=== PATIENT | male | born 1955 | race Caucasian/White ===

== ENCOUNTER → 2024-07-02 09:11 | Outpatient (REF) | payer MEDICARE, OTHER, SELFPAY | LOC: HWRAD 09:11 | PROVIDERS: ATTENDING PHYSICIAN Nurse Practitioner Family | DX: Z72.0 Tobacco use (principal); R91.1 Solitary pulmonary nodule; F17.210 Nicotine dependence, cigarettes, uncomplicated | CPT/HCPCS: 71271; 76770 ==

== ENCOUNTER → 2024-10-30 08:32 | Outpatient (REF) | payer MEDICARE, OTHER, SELFPAY | LOC: RCS 08:32 | PROVIDERS: ATTENDING PHYSICIAN Nurse Practitioner Family | DX: R03.0 Elevated blood-pressure reading, without diagnosis of hypertension (principal); R06.09 Other forms of dyspnea | CPT/HCPCS: 93017; 93350 ==